=== PATIENT | female | born 1990 | race Caucasian/White ===

== ENCOUNTER 2017-03-30 10:44 | Emergency (ER) | payer OTHER ==
--- NOTE | 2017-03-30 11:33 | CPEKG ---
Heart Rate: 98 RR Interval: 612 P-R Interval: 112 QRSD Interval: 74 QT Interval: 356 QTC Interval: 455 P [place]: 54 QRS [place]: 70 T Wave [place]: 49 EKG Severity - NORMAL ECG - EKG Impression: SINUS RHYTHM Electronically Signed By: Reid Moore 30-Mar-2017 12:01:38
--- NOTE | 2017-03-30 12:01 | EDPHY ---
H & P Stated Complaint: Several months of intermittant CP - worse today. Time Seen by Provider: 03/30/17 11:54 HPI/ROS: CHIEF COMPLAINT: Chest pain HISTORY OF PRESENT ILLNESS: The patient is a 27-year-old female who comes to the emergency department complaining left-sided rib and chest pain for the last year. Typically only hurts when she is lying flat and improves when she stands up. Today however it has been hurting more consistently. She went to the [facility] who performed an EKG, chest x-ray and lab work including a D- dimer which were all negative. They told her everything was normal and recommended she come to the ER for further evaluation. She denies shortness of breath. She denies recent fever illness. REVIEW OF SYSTEMS: Constitutional: denies: chills, fever, recent illness, recent injury EENTM: denies: blurred vision, double vision, nose congestion Respiratory: denies: cough, shortness of breath Cardiac: See HPI denies: irregular heart rate, lightheadedness, palpitations Gastrointestinal/Abdominal: denies: abdominal pain, diarrhea, nausea, vomiting, blood streaked stools Genitourinary: denies: dysuria, frequency, hematuria, pain Musculoskeletal: denies: joint pain, muscle pain Skin: denies: lesions, rash, jaundice, bruising Neurological: denies: headache, numbness, paresthesia, tingling, dizziness, weakness Hematologic/Lymphatic: denies: blood clots, easy bleeding, easy bruising Immunologic/allergic: denies: HIV/AIDS, transplant EXAM: GENERAL: Well-appearing, well-nourished and in no acute distress. HEAD: Atraumatic, normocephalic. EYES: Pupils equal round and reactive to light, extraocular movements intact, sclera anicteric, conjunctiva are normal. ENT: TMs normal, nares patent, oropharynx clear without exudates. Moist mucous membranes. NECK: Normal range of motion, supple without lymphadenopathy or JVD. LUNGS: Breath sounds clear to auscultation bilaterally and equal. No wheezes rales or rhonchi. HEART: Regular rate and rhythm without murmurs, rubs or gallops. ABDOMEN: Soft, nontender, normoactive bowel sounds. No guarding, no rebound. No masses appreciated. BACK: No CVA tenderness, no spinal tenderness, step-offs or deformities EXTREMITIES: Normal range of motion, no pitting or edema. No clubbing or cyanosis. NEUROLOGICAL: Cranial nerves II through XII grossly intact. Normal speech, normal gait. 5/5 strength, normal movement in all extremities, normal sensation PSYCH: Normal mood, normal affect. SKIN: Warm, dry, normal turgor, no visible rashes or lesions. Source: Patient Exam Limitations: No limitations - Personal History LMP (Females 10-55): 22-28 Days Ago Current Tetanus Diphtheria and Acellular Pertussis (TDAP): Yes - Medical/Surgical History Hx Asthma: No Hx Chronic Respiratory Disease: No Hx Diabetes: No Hx Cardiac Disease: No Hx Renal Disease: No Hx Cirrhosis: No Hx Alcoholism: No Hx HIV/AIDS: No Hx Splenectomy or Spleen Trauma: No Other PMH: brain tumor - Family History Significant Family History: No pertinent family hx - Social History Smoking Status: Never smoked Alcohol Use: Sober Drug Use: None Constitutional: Initial Vital Signs Temperature (C) 36.6 C 03/30/17 10:45 Heart Rate 102 H 03/30/17 10:45 Respiratory Rate 22 H 03/30/17 10:45 Blood Pressure 133/95 H 03/30/17 10:45 O2 Sat (%) 98 03/30/17 10:45 O2 Delivery Mode Room Air Allergies/Adverse Reactions: Penicillins Allergy (Verified 02/15/16 16:08) Medical Decision Making - Diagnostics EKG Interpretation: An EKG obtained and was read and documented in trace view. Please see trace view for full reading and report. Sinus rhythm, no acute ischemic changes or signs of right heart strain unchanged from previous ED Course/Re-evaluation: 12:40 p.m. we discussed the troponin result. The patient is reassured. She is frustrated because she states she has been dealing with this pain for urine half. She has seen multiple physicians who had not been able to give her an answer. We did send a thyroid panel but it is not yet back. The patient would like to go home. We discussed follow-up at the clinic. I offered to pain medication but she declined. Differential Diagnosis: Partial list of the Differential diagnosis considered include but were not limited to; anxiety, pleurisy, PE, and although unlikely based on the history and physical exam, I also considered acute coronary disease, pneumonia, pneumothorax, arrhythmia. I discussed these differential diagnoses and the plan with the patient as well as the usual and expected course. The patient understands that the diagnosis is provisional and that in medicine we are not always correct and that further workup is often warranted. Usual and customary warnings were given. All of the patient's questions were answered. The patient was instructed to return to the emergency department should the symptoms at all worsen or return, otherwise to followup with the physician as we discussed. Departure - Departure Disposition: Home, Routine, Self-Care Clinical Impression: Chest pain Qualifiers: Chest pain type: unspecified Qualified Code(s): R07.9 - Chest pain, unspecified Condition: Fair Instructions: Chest Pain (ED) Referrals: ASHLEY ALBARADO [Other] - As per Instructions
[2017-03-30 12:59] VITALS: BP 91/74; PULSE 90; RESP 18; TEMP 97.5; O2SAT 97
== END 2017-03-30 13:00 | disposition home or self-care (01) ==
DX: R07.9 Chest pain, unspecified (principal)